=== PATIENT | male | born 1975 | race Caucasian/White ===

== ENCOUNTER 2020-04-11 20:00 | Outpatient (CLI) | payer OTHER, SELFPAY | END 2020-04-11 20:01 | disposition home or self-care (01) | LOC: SLEEP 04-12 08:49 | PROVIDERS: Visit Provider Nurse Practitioner Family | DX: G47.33 Obstructive sleep apnea (adult) (pediatric) (principal); R53.83 Other fatigue | CPT/HCPCS: 95810 ==

== ENCOUNTER 2020-07-11 20:00 | Outpatient (CLI) | payer OTHER, SELFPAY | END 2020-07-11 20:01 | disposition home or self-care (01) | LOC: SLEEP 07-12 08:31 | PROVIDERS: Visit Provider Nurse Practitioner Family | DX: G47.33 Obstructive sleep apnea (adult) (pediatric) (principal) | CPT/HCPCS: 95811 ==

== ENCOUNTER → 2022-07-12 08:36 | Outpatient (BNVA) | payer BC, SELFPAY | PROVIDERS: PCP Clinical Nurse Specialist Adult Health; Visit Provider Clinical Nurse Specialist Adult Health | DX: M19.90 Unspecified osteoarthritis, unspecified site (principal); F32.9 Major depressive disorder, single episode, unspecified; F41.1 Generalized anxiety disorder; N05.1 Unspecified nephritic syndrome with focal and segmental glomerular lesions | CPT/HCPCS: 80053; 83735; 85025 ==

== ENCOUNTER 2022-10-17 09:33 | Outpatient (CLI) | payer BC, SELFPAY ==
--- NOTE | 2022-10-17 09:48 | XR_ITS ---
WS: [id number] Exam: XR thoracic spine 3V* [id number] Date/Time of Exam: 10/17/2022 10:02 AM Reason For Exam: neck pain, tingling. recently hit top of head cab of tractor No fracture or dislocation. Mild spondylosis. Paraspinal soft tissues appear normal. No significant s coliosis. Slightly increased kyphosis. XR/XR thoracic spine 3V* [id number] IMPRESSION: 1. No fracture or malalignment. Minor findings as above.
--- NOTE | 2022-10-17 09:48 | XR_ITS ---
WS: [id number] Exam: XR cervical spine 3V* [id number] Date/Time of Exam: 10/17/2022 10:02 AM Reason For Exam: neck pain, tingling. recently hit top of head cab of tractor No acute fracture or dislocation noted. Disc spaces are preserved. Normal paraspinal soft tissues. Th e odontoid is unremarkable. Minimal facet DJD. XR/XR cervical spine 3V* [id number] IMPRESSION: 1. Minimal degenerative change otherwise negative C-spine series.
== END 2022-10-17 09:34 | disposition home or self-care (01) ==
PROVIDERS: PCP Clinical Nurse Specialist Adult Health; Visit Provider Clinical Nurse Specialist Adult Health
DX: M54.2 Cervicalgia (principal); R20.2 Paresthesia of skin; W22.8XXA Striking against or struck by other objects, initial encounter
CPT/HCPCS: 72040; 72072

== ENCOUNTER 2022-11-01 08:59 | Outpatient (CLI) | payer BC, SELFPAY ==
--- NOTE | 2022-11-01 09:30 | MR_ITS ---
WS: [id number] MRI CERVICAL SPINE NONCONTRAST TECHNIQUE: Sagittal T1, T2 and STIR imaging. Axial T2, gradient, and fiesta imaging. CLINICAL INFORMATION: neck pain with radiculopathy COMPARISON: None. FINDINGS: Mild cervical curve. Cord signal is normal. No significant central canal stenosis. Slightly anterolis thesis C3 on C4 and C4 on C5. C2-C3: Mild LEFT foraminal narrowing. Spinal canal and RIGHT foramen are patent. C3-C4: Slight anterolisthesis C3 on C4. Mild facet arthropathy. Mild LEFT and no significant RIGHT fo raminal narrowing. C4-C5: Minimal disc bulging. Mild LEFT and no significant RIGHT foraminal narrowing. Moderate facet a rthropathy. Spinal canal is patent. C5-C6: Mild disc osteophytic ridging. Mild to moderate LEFT and no significant RIGHT foraminal narrow ing. Moderate facet arthropathy. Spinal canal is patent. C6-C7: Minimal disc bulging. Mild LEFT and no significant RIGHT foraminal narrowing. Spinal canal is patent. C7-T1: Mild LEFT and no significant RIGHT foraminal narrowing. Spinal canal is patent. Visualized brain stem structures: Normal. Prevertebral soft tissues: Normal. MR/MR cervical spin wo con* [id number] IMPRESSION: 1. Mild cervical curve. Spinal canal is patent. Cord signal is normal. 2. Mild LEFT C4-C5, C5-C6 and C6-C7 bony foraminal narrowing worse at C6-C7. M ild LEFT C7-T1 bony foraminal narrowing. 3. Slight anterolisthesis C3 on C4 and C4 on C5. 4. Moderate facet arthropathy C4-C5
--- NOTE | 2022-11-01 10:15 | MR_ITS ---
WS: [id number] MRI THORACIC SPINE WITHOUT CONTRAST TECHNIQUE: Sagittal T1, T2 and STIR imaging. Axial T2 imaging. Noncontrast imaging obtained. CLINICAL INFORMATION: neck pain with radiculopathy COMPARISON: None. FINDINGS: Mild thoracic curve. No acute compression fractures. No high-grade central canal stenosis. Cord signa l is normal. Mild facet arthropathy lower thoracic spine. Small shallow central disc protrusions wors e at T4-T5, T5-T6, T6-T7, and T7-T8. No significant central canal stenosis. No significant foraminal narrowing. Normal visualized thoracic aorta.Adrenal glands are normal. Normal paravertebral soft tissues. MR/MR thoracic spin wo con* [id number] IMPRESSION: 1. Normal thoracic alignment. No acute compression. 2. No significant central canal stenosis. Cord signal is normal. 3. A few tiny disc protrusions in the mid thoracic spine described above. This is more prominent at RIGHT T6-T7. No significant spinal canal or foraminal christiano rowing.
== END 2022-11-01 09:00 | disposition home or self-care (01) ==
LOC: RAD 09:02
PROVIDERS: PCP Clinical Nurse Specialist Adult Health; Visit Provider Clinical Nurse Specialist Adult Health
DX: M48.02 Spinal stenosis, cervical region (principal); M47.812 Spondylosis without myelopathy or radiculopathy, cervical region; M54.2 Cervicalgia; M54.6 Pain in thoracic spine
CPT/HCPCS: 72141; 72146

== ENCOUNTER → 2023-02-18 08:52 | Outpatient (BNVA) | payer BC, SELFPAY | PROVIDERS: PCP Clinical Nurse Specialist Adult Health; Visit Provider Clinical Nurse Specialist Adult Health | DX: R20.0 Anesthesia of skin (principal); R20.2 Paresthesia of skin; F32.1 Major depressive disorder, single episode, moderate | CPT/HCPCS: 82306; 82607; 83735 ==

== ENCOUNTER → 2023-08-20 08:55 | Outpatient (BNVA) | payer OTHER, SELFPAY | PROVIDERS: PCP Clinical Nurse Specialist Adult Health; Visit Provider Clinical Nurse Specialist Adult Health | DX: R35.0 Frequency of micturition (principal); R81 Glycosuria | CPT/HCPCS: 80053; 81000; 83036; 85025; 87086 ==

== ENCOUNTER → 2024-04-23 13:00 | Outpatient (BNVA) | payer OTHER, SELFPAY | PROVIDERS: PCP Clinical Nurse Specialist Adult Health; Visit Provider Family Medicine | DX: R81 Glycosuria (principal); N05.1 Unspecified nephritic syndrome with focal and segmental glomerular lesions; E83.39 Other disorders of phosphorus metabolism; E83.42 Hypomagnesemia; R79.89 Other specified abnormal findings of blood chemistry | CPT/HCPCS: 80053; 80061; 81003; 82043; 82306; 82607; 82728; 83550; 83735; 84100; 84443; 85025; 85651; 86038; 86140; 87086 ==